=== PATIENT | female | born 1980 | race American Indian/Alaskan Native ===

== ENCOUNTER 2019-02-20 23:33 | Emergency (ER) | payer MEDICAID ==
[2019-02-21 00:40] LABS: Basophils # (Auto) 0.1 K/mm3 (0.0-0.1); Basophils % (Auto) 1.2 % (0.0-1.8); Eosinophils # (Auto) 0.1 K/mm3 (0.0-0.4); Hemoglobin 12.1 gm/dl (10.1-14.3); Lymphocytes # (Auto) 2.9 K/mm3 (1.2-5.4); Lymphocytes % (Auto) 39.6 % (13.4-35.0); Mean Corpuscular HGB Conc 34 % (30-34); Mean Corpuscular Volume 90 fl (79-97); Monocytes # (Auto) 0.4 K/mm3 (0.0-0.8); Monocytes % (Auto) 6.1 % (0.0-7.3); Platelet Count 405 K/mm3 (140-440); Red Blood Count 3.98 M/mm3 (3.65-5.03); Red Cell Distribution Width 13.7 % (13.2-15.2)
[2019-02-21 04:39] VITALS: BP 127/87
--- NOTE | 2019-02-21 04:40 | Emergency Department Report ---
ED HPI - General Chief complaint: Vaginal Bleeding Stated complaint: VAGINAL BLEEDING/ Time Seen by Provider: 02/21/19 03:45 Source: patient Mode of arrival: Ambulatory Limitations: No Limitations - History of Present Illness Initial comments: 38-year-old female presents to the hospital with complaints of with vaginal bleeding starting this evening. Patient states that 3 weeks ago she was seen at [facility] and had an ultrasound that did not show an IUP. She was told that she was too early. By her dates of LMP 01/16/2019 her current gestational age is 5 weeks and 1 day. 5 days ago patient had a hCG performed at [facility]. She was told it was 850. Tonight she developed vaginal bleeding that is described as spotting that has slightly increased since arrival. She denies pain. This is her fourth and she has a history of 2 previous abortions, one miscarriage, and no living children. - Related Data Allergies Allergy/AdvReac Type Severity Reaction Status Date / Time No Known Allergies Allergy Unverified 02/20/19 23:49 ED Review of Systems ROS: Stated complaint: VAGINAL BLEEDING/ Other details as noted in HPI Comment: All other systems reviewed and negative ED Past Medical Hx - Past Medical History Previous Medical History?: No - Surgical History Past Surgical History?: No - Social History Smoking Status: Never Smoker Substance Use Type: None, Alcohol ED Physical Exam - General Limitations: No Limitations - Other Other exam information: General: No limitations, patient is alert in no acute distress Head exam: Atraumatic, normocephalic Eyes exam: Normal appearance ENT: Moist mucous membrane Neck exam: Normal inspection, full range of motion, no meningismus nontender Respiratory exam: Clear to auscultation bilateral, no wheezes, rales, crackles Cardiovascular: Normal rate and rhythm, normal heart sounds Abdomen: Soft, nondistended, and nontender, with normal bowel sounds, no rebound, or guarding Extremity: Full range of motion normal inspection no deformity Back: Normal Inspection, full range of motion, no tenderness Neurologic: Alert, oriented x3, cranial nerves intact, no motor or sensory deficit Psychiatric: normal affect, normal mood Skin: Warm, dry, intact ED Course Vital Signs 02/20/19 02/21/19 02/21/19 23:54 01:47 04:39 Temperature 98.1 F 98.2 F Pulse Rate 77 71 66 Respiratory 18 18 15 Rate Blood Pressure 181/85 Blood Pressure 140/98 127/87 [Right] O2 Sat by Pulse 100 100 100 Oximetry - Reevaluation(s) Reevaluation #1: 02/21/19 05:23 When I went to discharge patient she now states she had an ultrasound 1 week ago that did not show an IUP. She also now states that she has a history of an ectopic and not a miscarriage. Pt Continues to not have any pain. Pain and she has a downward trend in her hCG level with signs of vaginal bleeding suggestive of miscarriage. Once again, outpatient follow-up with [facility] and will be enco uraged for further evaluation. - Consultations Consultation #1: 02/21/19 05:00 I have been attempting to call patient's [facility] associated with [facility] since 3:17 AM with no response. I then reached out to adaptive physical education teacher doctor Dr. Rodriguez. Patient may go follow-up with her [facility] doctors with bleeding precautions.. ED Medical Decision Making - Lab Data Result diagrams: 02/21/19 00:03 Lab Results 02/21/19 02/21/19 02/21/19 Range/Units 00:03 00:03 00:03 WBC 7.3 (4.5-11.0) K/mm3 RBC 3.98 (3.65-5.03) M/mm3 Hgb 12.1 (10.1-14.3) gm/dl Hct 36.0 (30.3-42.9) % MCV 90 (79-97) fl MCH 30 (28-32) pg MCHC 34 (30-34) % RDW 13.7 (13.2-15.2) % Plt Count 405 (140-440) K/mm3 Lymph % (Auto) 39.6 H (13.4-35.0) % Sterling % (Auto) 6.1 (0.0-7.3) % Eos % (Auto) 1.0 (0.0-4.3) % Baso % (Auto) 1.2 (0.0-1.8) % Lymph # 2.9 (1.2-5.4) K/mm3 Sterling # 0.4 (0.0-0.8) K/mm3 Eos # 0.1 (0.0-0.4) K/mm3 Baso # 0.1 (0.0-0.1) K/mm3 Seg Neutrophils % 52.1 (40.0-70.0) % Seg Neutrophils # 3.8 (1.8-7.7) K/mm3 HCG, Quant 323.5 H (0-4) mIU/mL Blood Type A POSITIVE - Medical Decision Making Patient has a very low hCG level that is decreasing compared to previous value. Plan to have patient follow up with [facility] for further management. No pain on exam. Patient is Rh+ and therefore does not require RhoGAM. Repeat vital signs show improvement hypertension without intervention. - Differential Diagnosis ectopic, miscarriage, early Critical Care Time: No Critical care attestation.: If time is entered above; I have spent that time in minutes in the direct care of this critically ill patient, excluding procedure time. ED Disposition Clinical Impression: Miscarriage Disposition: DC-01 TO HOME OR SELFCARE Is pt being admited?: No Does the pt Need Aspirin: No Condition: Stable Instructions: Spontaneous Miscarriage (ED) Additional Instructions: Follow up with your doctor or the clinic/doctor provided. Return if symptoms worsen as indicated by your discharge instructions Your beta hCG level today is 323. This is decreased compared to your previous value of 850. It is likely that you are having a miscarriage. It is very important that you follow-up with [facility] for further treatment and to continue to follow your HCG levels. Referrals: [facility] [Provider Group] - 3-5 Days CHEL RODRIGUEZ MD [Staff Physician] - 24 Hours (complaint evaluation supervisor ) Forms: Work/School Release Form(ED) Time of Disposition: 05:01
== END 2019-02-21 05:38 | disposition home or self-care (01) ==
LOC: ED 23:33
DX: O03.9 Complete or unspecified spontaneous abortion without complication (principal); Z3A.01 Less than 8 weeks gestation of pregnancy
CPT/HCPCS: 36415; 84702; 85025; 86900; 86901; 99283